=== PATIENT | female | born 1950 | race African-American/Black ===

== ENCOUNTER 2020-11-15 12:25 | Outpatient (CLI) | payer MEDICARE | END 2020-11-15 12:26 | disposition home or self-care (01) | LOC: BICRAD 12:25 | PROVIDERS: ATTEND Family Medicine | DX: M25.511 Pain in right shoulder (principal); M25.562 Pain in left knee; M81.0 Age-related osteoporosis without current pathological fracture; M19.011 Primary osteoarthritis, right shoulder ==

== ENCOUNTER 2020-11-22 08:02 | Outpatient (CLI) | payer MEDICARE | END 2020-11-22 08:03 | disposition home or self-care (01) | LOC: BICMAMMO 08:02 | PROVIDERS: ATTEND Family Medicine | DX: Z12.31 Encounter for screening mammogram for malignant neoplasm of breast (principal); M81.0 Age-related osteoporosis without current pathological fracture; M85.89 Other specified disorders of bone density and structure, multiple sites; Z80.3 Family history of malignant neoplasm of breast | CPT/HCPCS: 77063; 77067; 77080 ==